=== PATIENT | male | born 1975 | race Caucasian/White ===

== ENCOUNTER → 2017-08-28 | Outpatient (CLI) | payer MEDICARE, OTHER ==
[2017-08-28 14:51] VITALS: BP 149/87; PULSE 84; RESP 18; TEMP 98.4
--- NOTE | 2017-08-28 15:24 | P.CONS ---
History of Present Illness - Reason for Consult Consult date: 08/28/17 Severe low back pain - History of Present Illness This is a 42 years old male , with a chronic history of severe low back pain with radiation to the left lower extremity associated with numbness and tingling sensation, started 4-5 years , he denies any initiating event he denies any history of trauma or heavy lifting, but he reported that his pain started after his right shoulder surgery in 2012, he described his pain as a constant pain increased with any activity interference with his quality of low intensity of the pain 7/10 increased to 10 over 10 with any activity, he had lumbar epidural steroid injection in the past which helped him significantly, he denies any fever or night sweats with denies any change in the bowel movement or urination and no motor or sensory deficits, Past Medical History Past Medical History: Musculoskeletal Disorder Additional Past Medical History / Comment(s): chronic shoulder pain CHRONIC BACK PAIN History of Any Multi-Drug Resistant Organisms: None Reported Past Surgical History: Orthopedic Surgery Additional Past Surgical History / Comment(s): right shoulder Past Anesthesia/Blood Transfusion Reactions: No Reported Reaction Past Psychological History: No Psychological Hx Reported Smoking Status: Current every day smoker Past Alcohol Use History: None Reported Past Drug Use History: None Reported Medications and Allergies Home Medications Medication Instructions Recorded Confirmed Type Citalopram Hydrobromide [CeleXA] 20 mg PO DAILY 10/29/15 08/28/17 History oxyCODONE-APAP 10-325MG [Percocet 1 tab PO TID 10/29/15 08/28/17 History 10-325 mg] ALPRAZolam [Xanax] 1 tab PO BID 11/18/15 08/28/17 History Albuterol Inhaler [Ventolin Hfa 2 inhaler INHALATION Q6H 11/18/15 08/28/17 History Inhaler] Gabapentin [Neurontin] 1 tab PO Q6H 11/18/15 08/28/17 History Omeprazole [Omeprazole] 20 mg PO DAILY 11/18/15 08/28/17 History Baclofen [Lioresal] 20 mg PO BID 08/28/17 08/28/17 History Allergies Allergy/AdvReac Type Severity Reaction Status Date / Time No Known Allergies Allergy Verified 08/28/17 14:53 Physical Exam Vitals: Vital Signs Temp Pulse Resp BP Pulse Ox 08/28/17 14:41 98.4 F 84 18 149/87 97 Physical Examinations : 1-Constitutiona : Cooperative , not in acute distress . 2-HEENT : nech ; supple , no Lymphadenopathy , normal thyroid size . eyes : no ptosis , no icterus, no photophobia . ENT : normal of hearing , normal oropharynx , no Thrush . 3- Respiratory : Chest clear to auscultations Bilaterally , no wheezing , no Rhonchi . 4- Cardiovascular : regular rate and rhythem , S1 , S2 , no S3 , no S4. 5- Gastrointestinal : abdomen soft no tenderness , bowel sounds positive all four quadrents , no organomegally . 6- Genitourinary : Defferred . 7- neurologic : Cranial nerve II to XII intact , no focal neurological deffecit . 8-psychatric : alert , oriented X 3 , appropriate affect , intact judgment and insight . 9-Lymphatic : no Lymphadenopathy . 10- musculoskeltal : cervical spine = motor stregnth in the deltoid and biceps, , Lumber spine = normal moter stegnth lower extremities ,thigh and legs .5/5 deep tendon reflexes : normal Knee Jerk , normal ankle Jerk . lumber facet Loading Test positive on the left side , negative on the right side strait leg raising test positive on the left side and is negative on the right side Fabere test positive LT . , Negative on the right side Results Comments: MRI of the lumbar spine= L5-S1 lumbar degenerative disc disease and lumbar facet , L4 5 lumbar bulging disc disease and lumbar facet arthropathy and left-sided neuroforaminal narrowing, L3 4 foraminal narrowing Assessment and Plan Assessment: Assessment and plan= lumbar radiculopathy, lumbar degenerative disc disease, lumbar foraminal stenosis Patient could benefit from lumbar epidural steroid injections under fluoroscopy guidance (left side directed at the L4 5 level ) Procedure risk and benefits and alternatives discussed with the patient and he agreed with the procedure Time with Patient: Less than 30
== END | disposition home or self-care (01) ==
LOC: PNWHC3 14:14
PROVIDERS: ATTEND Specialist
DX: M99.73 Connective tissue and disc stenosis of intervertebral foramina of lumbar region (principal); M51.16 Intervertebral disc disorders with radiculopathy, lumbar region
CPT/HCPCS: 99211

== ENCOUNTER → 2017-12-31 | Outpatient (CLI) | payer MEDICARE, OTHER ==
--- NOTE | 2018-01-01 09:22 | US ---
EXAMINATION TYPE: US scrotum with doppler. Grayscale and color Doppler Duplex imaging performed of t melissa scrotum. DATE OF EXAM: 12/31/2017 COMPARISON: NONE CLINICAL HISTORY: N50.89 DISORDER OF MALE GENITAL ORGANS. Left testicular pain EXAM MEASUREMENTS: TESTICLES: Right Testicle: 3.9 x 2.0 x 3.1 cm Left Testicle: 4.8 x 2.5 x 2.9 cm EPIDIDYMIS HEAD: Right Epididymis: 0.8 cm Left Epididymis: 1.0 cm Doppler performed to assess for testicular vascularity; good bilateral color flow and waveforms are s een. There is no evidence of testicular torsion. Presence of hydroceles: Left, 1.4 x 0.6 x 1.8cm Presence of varicoceles: no IMPRESSION: Small left hydrocele, otherwise unremarkable scrotal ultrasound.
== END | disposition home or self-care (01) ==
LOC: RADUSWWP 14:50
PROVIDERS: ATTEND Family Medicine
DX: N43.3 Hydrocele, unspecified (principal)
CPT/HCPCS: 76870; 93975

== ENCOUNTER → 2019-05-17 | Outpatient (CLI) | payer MEDICARE, OTHER ==
--- NOTE | 2019-05-18 21:49 | MR ---
EXAMINATION TYPE: MR lumbar spine wo/w con DATE OF EXAM: 05/17/2019 COMPARISON: MRI lumbar spine March 03, 2016 HISTORY: Radiculopathy, lumbar region per order. History of surgery October 2017 with low midline precious k pain going into left thigh and calf for 2 years per patient. TECHNIQUE: Multiplanar, multisequence images of the lumbar spine is performed without and with IV contrast, util izing 7 mL intravenous Gadavist FINDINGS: Sagittal images of the lumbar spine show vertebral body heights and alignment to remain sat isfactory. There is new artifact from posterior interpedicular rods and screws transfixing L3-L5 leve ls along with artificial disc material L3-L4 and L4-L5 levels. The disc space heights and hydration a re maintained above and below surgical levels. The conus medullaris is stable in position ending supe rior L2 level. Mild multilevel anterior spurring is redemonstrated. The bone marrow signal intensity is within normal limits. No suspicious postcontrast enhancement is seen. Axial images at the T12-L1 level redemonstrate mild broad disc bulge minimally effacing the anterior thecal sac. Axial images at the L1-L2 level show mild broad-based posterior disc protrusion mildly effacing the a nterior thecal sac on axial image 23, bilateral neural foramina are patent. No significant change fro m prior. Axial images at L2-L3 level show mild/moderate broad disc bulge mildly effacing anterior thecal sac w ith mild facet degenerative changes bilaterally. Bilateral neural foramina are patent. No significant change from prior. Axial images at L3-L4 level are significantly degraded by artifact from disc material and posterior f usion hardware. Spinal canal is likely preserved. Bilateral neural foramina are likely patent. Axial images at the L4-L5 level show artifact from disc material and posterior fusion hardware. Spina l canal is felt preserved. Bilateral neuroforamina are felt patent. Axial images at the L5-S1 level show mild to moderate facet degenerative changes bilaterally with sage e progression from prior MRI. Spinal canal is preserved. Bilateral neuroforamina are patent. Partial visualization of pelvic right kidney on the lowermost axial images once again noted. IMPRESSION: Interval surgery L3-L5 levels with stable and satisfactory alignment. Some progression in the facet arthropathy lumbosacral junction otherwise no significant interval change from prior MRI 2 016.
== END | disposition home or self-care (01) ==
LOC: RADMRIMAIN 13:59
PROVIDERS: ATTEND Family Medicine
DX: M46.97 Unspecified inflammatory spondylopathy, lumbosacral region (principal); Z98.1 Arthrodesis status
CPT/HCPCS: 72158; A9585

== ENCOUNTER → 2019-07-18 | Outpatient (CLI) | payer MEDICARE, OTHER ==
--- NOTE | 2019-07-18 18:08 | CT ---
EXAMINATION TYPE: CT lumbar spine wo con DATE OF EXAM: 07/18/2019 COMPARISON: MRI lumbar spine 05/17/2019 HISTORY: Loosening of hardware L3-L5. CT DLP: 935 mGycm CONTRAST: No contrast TECHNIQUE: CT of the lumbar spine is performed on a spiral scan at 3 mm thick sections. Reconstructed images are performed in the coronal and sagittal planes. FINDINGS: T12-L1: No focal disc herniation or significant disc bulge is evident. No spinal canal stenosis or neural foraminal stenosis is present. L1-L2: No focal disc herniation or significant disc bulge is evident. No spinal canal stenosis or n eural foraminal stenosis is present L2-L3: A based disc bulge is moderate anterior thecal sac compression. Mild facet hypertrophy is pres ent. No spinal canal stenosis is present. Kkzh-er-wfhskzbe bilateral foraminal narrowing is present. L3-L4: Pedicle screws are present at L3. This causes beam hardening artifact. No suspicious lucency a djacent to suggest loosening is evident. Disc spacers present. No spinal canal stenosis is present. L4-L5: Pedicle screws are present at L3. This causes beam hardening artifact. No suspicious lucency a djacent to suggest loosening is evident. Disc spacers present. No spinal canal stenosis is present. L5-S1: No focal disc herniation or significant disc bulge is evident. No spinal canal stenosis or n eural foraminal stenosis is present Vertebral alignment appears normal. IMPRESSION: 1. No suspicious lucency to suggest loosening of the L3-L5 hardware. 2. Moderate disc bulge with some facet hypertrophy L2-3 contributing to mild canal narrowing without stenosis. 3. Mild to moderate bilateral foraminal narrowing due to the disc bulging is present at L2-L3.
== END ==
LOC: RADCTMAIN 10:13
PROVIDERS: ATTEND Orthopaedic Surgery
DX: Z98.1 Arthrodesis status (principal); M51.26 Other intervertebral disc displacement, lumbar region; M89.38 Hypertrophy of bone, other site; M48.061 Spinal stenosis, lumbar region without neurogenic claudication
CPT/HCPCS: 72131

== ENCOUNTER → 2019-07-25 | Outpatient (CLI) | payer MEDICARE, OTHER ==
--- NOTE | 2019-07-26 03:55 | MR ---
MRI CERVICAL SPINE: Thoracic spine CLINICAL HISTORY: Neck pain back pain TECHNIQUE: Multiplanar, multisequence imaging of the thoracic and cervical spine is performed without contrast COMPARISON: None FINDINGS: The cervical vertebra have normal alignment. Disc spaces are fairly normal. There is a smal l posterior disc bulge at C5-6 without significant encroachment on the spinal canal. Disc herniation is slightly to the left side and there could BE some minimal neural foraminal encroachment at C5-6. C anal measures 8 mm at C5-6. Cervical spinal cord has normal signal pattern. There is no edema. The br ainstem appears intact. There is no compression fracture. Facet joints are intact. There is no eviden ce of cervical paraspinal mass. The thoracic vertebra have fairly normal spacing and alignment. Thoracic spinal cord has normal signa l pattern. There is no evidence of a mass. There is no thoracic spinal stenosis. I see no bony destru ctive process. There is no evidence of thoracic compression fracture. IMPRESSION: There is small posterior disc herniation at C5-6 which is more towards the left side. Otherwise negat kalee MR scan of the cervical spine. Negative MR scan of the thoracic spine.
== END | disposition home or self-care (01) ==
LOC: RADMRIMAIN 19:45
PROVIDERS: ATTEND Orthopaedic Surgery
DX: M50.222 Other cervical disc displacement at C5-C6 level (principal); M54.6 Pain in thoracic spine
CPT/HCPCS: 72141; 72146

== ENCOUNTER → 2024-11-12 | Outpatient (CLI) | payer MEDICARE, OTHER ==
--- NOTE | 2024-11-12 11:01 | US ---
EXAMINATION TYPE: US abdomen complete DATE OF EXAM: 11/12/2024 COMPARISON: NONE CLINICAL INDICATION: Male, 49 years old with history of R10.12 LEFT UPPER QUADRANT PAIN; LUQ pain und er ribcage, no known injury TECHNIQUE: Grayscale and color Doppler imaging of the abdomen was performed. FINDINGS: EXAM MEASUREMENTS: Liver Length: 15.8 cm Gallbladder Wall: 0.2 cm CBD: 0.7 cm, color Doppler imaging was utilized to isolate the common bile duct for measurement. Spleen: 8.6 cm Right Kidney: 9.5 x 4.2 x 4.4 cm Left Kidney: 10.8 x 4.6 x 5.8 cm Pancreas: wnl Liver: wnl, no dilated ducts, masses or cysts. Gallbladder: wnl Evidence for sonographic Erickson's sign: no CBD: dilated CBD seen more toward CHD, tapers back to wnl toward head of pancreas Spleen: wnl Right Kidney: pelvic kidney, wnl, No hydronephrosis, calculi or masses seen Left Kidney: wnl, No hydronephrosis, calculi or masses seen Upper IVC: wnl Abd Aorta: wnl Farm Technician notes: Scanned LUQ under rib at AOC - no abnormality seen, bowel gas IMPRESSION: 1. Bile duct mildly dilated at 7 mm. This may be chronic for the patient. Correlate with alkaline burak sphatase and bilirubin levels to exclude biliary obstruction. 2. Targeted scanning at the left upper quadrant at the area of concern. No specific sonographic abnor mality is seen here. [facility], , 11/12/2024 10:58 AM
== END | disposition home or self-care (01) ==
LOC: RADUSWWP 08:49
PROVIDERS: ATTEND Family Medicine
DX: K83.8 Other specified diseases of biliary tract (principal)
CPT/HCPCS: 76700